=== PATIENT | female | born 1980 | race Caucasian/White ===

== ENCOUNTER 2016-09-11 07:51 | Day surgery (SDC) | payer BC ==
[~2016-09-11 07:51] MED LIST: CEFAZOLIN 2 GM-D5W BAG** 50 ML IV SCH; EPINEPHRINE 1:1000 1 ML AMP ONE; LEVOFLOXACIN 750MG/150ML D5W 150 ML IV SCH; Lactated Ringers 1,000 ML IV ONE; Marcaine 0.5% SDV 10 ML ONE; Pepcid 20 MG VIAL IV ONE; XYLOCAINE 1%/Epi 1:100000 MDV 20 ML ONE
[2016-09-11] MEDS: Lactated Ringers 1,000 ML IV SCH ×2 (07:58→11:43)
[2016-09-11] MEDS ORDERED: TORAdol 30 mg Injection IJ ONE (08:00)
[2016-09-11] MEDS ORDERED: SUBLIMAZE 100 MCG/2 ML IV ONE (08:00)
[2016-09-11] MEDS ORDERED: DILAUDID 2 MG INJECTION IV ONE (08:00)
[2016-09-11] MEDS ORDERED: Ephedrine Sulfate 50 MG/ML IJ ONE (08:00)
[2016-09-11] MEDS ORDERED: Zofran 4 MG/2 ML VIAL IV ONE (08:00)
[2016-09-11] MEDS ORDERED: DIPRIVAN 200 MG/20 ML IV ONE (08:00)
[2016-09-11] MEDS ORDERED: Decadron 4 MG INJ IV ONE (08:00)
[2016-09-11] MEDS ORDERED: OFIRMEV 100 ML IV ONE (08:00)
[2016-09-11 08:34] LABS: Mean Cell Volume 93.1 fl (78-100); Mean Corpuscular Hemoglobin 31.3 pg (26-32); Mean Platelet Volume 11.9 fl (6-9.5); Platelet Count 163 K/mm3 (150-450); Red Blood Count 4.51 M/mm3 (4.1-5.4); Red Cell Distribution Width 12.6 % (11.5-14.0); White Blood Count 7.5 K/mm3 (4.0-10.5)
[2016-09-11 09:10] LABS: ALBUMIN 3.7 g/dL (3.4-5.0); ALKALINE PHOSPHATASE 40 U/L (46-116); ANION GAP 12.3 MEQ/L (5-15); BILIRUBIN,TOTAL 0.4 mg/dL (0.2-1.0); BLOOD UREA NITROGEN 9 mg/dL (9-20); CHLORIDE 106 mEq/L (98-107); Glucose 82 MG/DL (70-110); Potassium 4.2 mEq/L (3.5-5.1); SGOT/AST 23 U/L (15-37); SGPT/ALT 21 U/L (12-78); SODIUM 138 mEq/L (136-145); Total Protein 6.7 gm/dL (6.4-8.2)
[2016-09-11] MEDS ORDERED: ON-Q PUMP 1 in Marcaine MPF 0.25% 30 ML*** 135 ML, Marcaine Mpf 0.5% Vial 30 Ml*** 135 ML IJ SCH (10:00)
[2016-09-11] MEDS ORDERED: SUBLIMAZE 100 MCG/2 ML ONE (10:59)
[2016-09-11] MEDS ORDERED: Lactated Ringers 1,000 ML IV ONE (11:35)
[2016-09-11] MEDS ORDERED: Zofran 4 MG/2 ML VIAL ONE (11:38)
[2016-09-11] MEDS ORDERED: Zofran 4 MG/2 ML VIAL IV STA (11:39)
--- NOTE | 2016-09-11 11:41 | OP ---
SURGERY DATE/TIME: 09/11/2016 0941 PREOPERATIVE DIAGNOSIS: Right knee internal derangement. POSTOPERATIVE DIAGNOSES: 1) Right knee pathologic plica. 2) Right knee lateral meniscus tear. 3) Right knee chondromalacia medial femoral condyle. PROCEDURES: 1) Right knee arthroscopy with debridement. 2) Right knee arthroscopy with resection of lateral meniscus - partial. 3) Right knee arthroscopy with medial femoral condyle chondroplasty. 4) Long leg splint. 5) On-Q pump catheter postoperative pain. SURGEON: Mathieu Proctor D.O. LABEL PRINTING MACHINIST: None. ANESTHESIA: General per CHILLING HOOD OPERATOR. ESTIMATED BLOOD LOSS: Minimal. DESCRIPTION OF PROCEDURE: The patient is taken to the operative suite and placed in supine position, given a general anesthetic, placed supine. All neurovascular areas well padded. Sterile prep and drape done to the leg. Tourniquet applied, inflated, exsanguinated to 350, and sterile prep and drape done to the leg. Incision made in suprapatellar area of the knee with an Egress cannula. 0.5% Marcaine, 1% Lidocaine with epinephrine placed into the knee 60 cc total. Infralateral aspect of the knee entered with a camera and inflow established there. Spinal needle stab incision and shaver placed over the medial joint line. Diagnostic arthroscopy was then begun. The lateral half of the knee looked pretty good with the exception of a small fissure or tear of the central portion of the lateral meniscus at the incisura. The rest of the chondral surfaces throughout the knee looked clean, firm and stable without osteophytes or chondral defects. Once the lateral meniscus tear was treated however then we moved onto to an overall clean surface underneath the patella and a pathologic plica that was pictured and probed, and it was shaved down with a 404 radius shaver. Chondral defect over the rim of the medial femoral condyle is also touched up with an ArthroCare device or SERFAS-like device tightened up over a span of about 5 to 10 mm covering a depth of maybe 1 on a modified outer bridge classification. Once we were done the Ethilon sutures were placed on the portal sites and the knee was drained of saline. On-Q catheter was placed astride the extra-articular portion on the joint line secured with Steri-Strips run at a 1 to 2 cc/hour rate. Long leg splint applied. The patient is sent on to recovery room in satisfactory condition.
[2016-09-11 12:47] VITALS: BP 127/74; PULSE 70; O2SAT 97
== END 2016-09-11 12:40 | disposition home or self-care (01) ==
LOC: SDC 07:51
PROVIDERS: ATTEND Orthopaedic Surgery
PROC: 0SBC4ZZ Excision of Right Knee Joint, Percutaneous Endoscopic Approach (ICD-10-PCS; principal; 2016-09-11)
PROC: 2W3QX1Z Immobilization of Right Lower Leg using Splint (ICD-10-PCS; 2016-09-11)
DX: M23.91 Unspecified internal derangement of right knee (principal); M67.51 Plica syndrome, right knee; S83.281A Other tear of lateral meniscus, current injury, right knee, initial encounter; M22.41 Chondromalacia patellae, right knee; M25.561 Pain in right knee
CPT/HCPCS: 01400; 36415; 80053; 85027; J0171; J1100; J1170; J1885; J1956; J2405; J2704; J3010; L1830

== ENCOUNTER 2019-07-20 08:18 | Day surgery (SDC) | payer BC, OTHER ==
[2019-07-20] MEDS ORDERED: Lactated Ringers 1,000 ML IV SCH (08:30)
--- NOTE | 2019-07-20 08:31 | HP ---
DATE OF SURGERY: 07/20/2019 HISTORY OF PRESENT ILLNESS: The patient is a 39 year-old with upper abdominal reflux, epigastric and some right upper quadrant aches and pain. 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 Last upper endoscopy two or three years ago. Occasional chest pain with swallowing. She had a follow up gallbladder ultrasound. She previously had polyps in her gallbladder in the past. The patient had a little bit of sludge in her gallbladder in the past as well. She did have a HIDA scan back in 2017 and the ejection fraction was okay. PAST MEDICAL HISTORY: Reflux. PAST SURGICAL HISTORY: Endoscopy in the distant past. Toenail surgery. Left knee surgery in the past. MEDICATIONS: Nexium, Mylanta. ALLERGIES: PENICILLINS. FAMILY HISTORY: Throat cancer. Parkinson's. SOCIAL HISTORY: No smoking or alcohol abuse. REVIEW OF SYSTEMS: Fourteen systems reviewed. She had ulcers but otherwise pertinent for as noted above. No current chest pain or palpitations. Negative or noncontributory as above and per preadmission questionnaire. PHYSICAL EXAMINATION: GENERAL: No acute distress. HEENT: Sclerae nonicteric. NECK: No JVD. CHEST: Equal excursion, nonlabored breathing. CVS: Regular rate and rhythm. ABDOMEN: Soft, some mild tenderness epigastrium and right upper quadrant. No peritoneal signs. EXTREMITIES: No significant edema. NEURO: Alert, oriented, moving extremities symmetrically. No gross motor deficits noted. IMPRESSION: Increased reflux upper and abdominal pain. She has prior history of ulcers. She is in need of EGD possible biopsy. Shown the risk sheet and explained the procedure in detail including but not limited to bleeding or infection, risk of bowel injury or perforation possibly requiring open procedure, risk of missed or nondiagnosis or incomplete exam possibly requiring barium swallow, other studies or procedures, general risk of anesthesia or sedation but not limited to. She understands and agrees to the planned procedure and will proceed with EGD with possible biopsy as an outpatient.
[2019-07-20] MEDS ORDERED: Lactated Ringers 1,000 ML IV ONE (09:02)
[2019-07-20] MEDS ORDERED: Versed 2 MG/2 ML Injection ONE (09:56)
[2019-07-20] MEDS ORDERED: DIPRIVAN 200 MG/20 ML IV ONE (09:56)
[2019-07-20 11:10] VITALS: BP 124/65; PULSE 63; O2SAT 99
--- NOTE | 2019-07-20 15:00 | OP ---
SURGERY DATE/TIME: 07/20/2019 1002 PREOPERATIVE DIAGNOSIS: Epigastric pain, increased reflux. POSTOPERATIVE DIAGNOSES: 1) Minimal to mild gastritis. 2) Short segment of early distal gastroesophagitis very short segment. PROCEDURES: 1) EGD with cold biopsy of small bowel to evaluate for celiac sprue. 2) Cold biopsy to antrum to evaluate for Helicobacter pylori. 3) Cold biopsy distal esophagus to evaluate short segment of distal esophagitis. 4) Random cold biopsies of esophagus to evaluate to evaluate eosinophilic esophagitis. SURGEON: Dr. Blair Olmos. ANESTHESIA: MAC. ESTIMATED BLOOD LOSS: Minimal. INDICATIONS: As noted above. Risks and benefits explained in detail and not limited to and consent obtained. DESCRIPTION OF PROCEDURE AND FINDINGS: The patient is taken to the endoscopy room. MAC anesthesia induced. After official time out and no disagreement with planned procedure, a bite block positioned. Video gastroscope easily passed through the esophagus through the patent pylorus to the junction of the second and third portion of the duodenum. Proximal duodenum grossly unremarkable. No signs of any ulcers, masses or macroscopic inflammation. Given her symptom complaints cold biopsy taken to evaluate for celiac disease, other causes of epigastric pain. Good hemostasis noted. The scope pulled back into the stomach. She had some minimal to mild gastritis. Cold biopsy taken to evaluate for Helicobacter pylori. Good hemostasis noted. On retroflex the gastroesophageal junction snug against the scope. No signs of any significant hiatal hernia. Scope straightened. Gastroesophageal junction about 39 cm. There was a little short segment of little splotchy area whether just normal variation of gastroesophageal junction but very short segment of distal gastroesophagitis. Cold biopsy taken. Good hemostasis noted. The remainder of the esophagus no signs of any obvious ulcers or masses. No sign of any Mendoza's. Random cold biopsy taken to evaluate for eosinophilic esophagitis. Scope withdrawn. The patient tolerated the procedure well. There were no immediate complications. Should she continue to have symptoms may need to consider repeating gallbladder work up as she had some in the past.
== END 2019-07-20 11:10 | disposition home or self-care (01) ==
LOC: SDC 08:18
PROVIDERS: ATTEND Surgery
DX: K21.0 Gastro-esophageal reflux disease with esophagitis (principal); K29.70 Gastritis, unspecified, without bleeding
CPT/HCPCS: 88305; J2250; J2704